=== PATIENT | female | born 1940 | race Caucasian/White ===

== ENCOUNTER 2018-11-15 09:31 | Inpatient (IN) | payer MEDICARE, OTHER ==
[~2018-11-15] VITALS: Ht 154.9 cm; Wt 70.9 kg
--- NOTE | 2018-11-15 10:05 | NUR ---
call placed to [facility]
--- NOTE | 2018-11-15 10:05 | NUR ---
Jolie pascual in [facility] - 11/15/18 at 1006 by HARLAN call placed to [facility]
[2018-11-15 10:40] LABS: MEAN CORPUSCULAR HEMOGLOBIN 25.8 PG (27.0-31.0); MEAN CORPUSCULAR HGB CONC 32.3 % (33.0-36.5); MEAN CORPUSCULAR VOLUME 79.9 FL (78-98); MEAN PLATELET VOLUME 7.1 FL (7.4-10.4); PLATELET COUNT 325 X10'3 (140-440); RED CELL DISTRIBUTION WIDTH 16.4 % (11.5-14.5); WHITE BLOOD COUNT 9.6 X10'3 (4.5-11.0)
[2018-11-15 10:58] LABS: ALANINE AMINOTRANSFERASE 31 U/L (12-78); ALBUMIN 2.9 G/DL (3.4-5.0); ALKALINE PHOSPHATASE 60 IU/L (46-116); ANION GAP 9 (8-16); ASPARTATE AMINO TRANSFERASE 23 U/L (10-37); BILIRUBIN,TOTAL 0.2 MG/DL (0.1-1.0); BLOOD UREA NITROGEN 46 MG/DL (7-18); BUN/CREATININE RATIO 59.7 (6.6-38.0); CHLORIDE 108 MMOL/L (99-107); CREATININE 0.77 MG/DL (0.40-0.90); GLUCOSE 117 MG/DL (70-104); PARTIAL THROMBOPLASTIN TIME 22 SECONDS (22-32); POTASSIUM 4.2 MMOL/L (3.5-5.1); PROTHROMBIN TIME 10.2 SECONDS (9.0-12.0); SODIUM 143 MMOL/L (135-145); TOTAL CARBON DIOXIDE 26.2 MMOL/L (24-32); TOTAL PROTEIN 5.8 G/DL (6.4-8.2); eGFR 73 ML/MIN
[2018-11-15 11:37] LABS: D-DIMER 0.58 MG/L FEU (0-0.50)
[2018-11-15 11:54] LABS: HEMATOCRIT 15.2 % (35.0-45.0); HEMOGLOBIN 4.9 g/dl (12.0-16.0)
[2018-11-15 12:08] LABS: ANISOCYTOSIS 1+; MICROCYTOSIS 2+; PLATELET ESTIMATE NORMAL; POLYCHROMASIA 1+; TOTAL CELLS COUNTED 100
[2018-11-15 12:09] LABS: HYPOCHROMASIA 1+
[2018-11-15] MEDS ORDERED: magnesium hydroxide 30ml (MOM) UD suspension PO PRN (13:15)
[2018-11-15] MEDS ORDERED: ondansetron/PF 4mg/2ml inj IV PRN (13:15)
[2018-11-15] MEDS ORDERED: potassium Cl 40MEQ/NS 500ml 500 ML IV PRN ×2 (13:15)
[2018-11-15] MEDS ORDERED: mag hydrox/Alum hydrox/simeth 30ml oral suspension PO PRN (13:15)
[2018-11-15] MEDS ORDERED: acetaminophen 325mg tablet PO PRN (13:15)
[2018-11-15] MEDS ORDERED: magnesium 4gm in 100ml NS 100 ML IV PRN (13:15)
[2018-11-15] MEDS ORDERED: magnesium Cl slow-release 64mg tablet PO PRN (13:15)
[2018-11-15] MEDS ORDERED: potassium Cl 20 mEq SR tablet PO PRN ×2 (13:15)
[2018-11-15] MEDS ORDERED: bisacodyl 10mg suppository rectal RC PRN (13:15)
[2018-11-15] MEDS ORDERED: magnesium 2GM in 50ml NS 50 ML IV PRN (13:15)
--- NOTE | 2018-11-15 13:16 | NUR ---
Dr. Will is in a procedure and will be calling back
[2018-11-15] MEDS ORDERED: UBID1CAP60 PO (14:31)
[2018-11-15] MEDS ORDERED: CHOL200052 PO (14:31)
[2018-11-15] MEDS ORDERED: DICL-194 PO (14:31)
[2018-11-15] MEDS ORDERED: HYDR25TA4 PO (14:31)
[2018-11-15] MEDS ORDERED: VITE1000C PO (14:31)
[2018-11-15] MEDS ORDERED: MAGN400C PO (14:31)
[2018-11-15] MEDS ORDERED: POTA99TA21 PO (14:31)
[2018-11-15] MEDS ORDERED: FISH12002 PO (14:31)
[2018-11-15 14:49] VITALS: BP 140/60
[2018-11-15 15:16] VITALS: BP 108/62
[2018-11-15 15:30] VITALS: BP 116/65
[2018-11-15 15:42] VITALS: BP 130/59
[2018-11-15 16:20] VITALS: BP 136/66
[2018-11-15] MEDS: pantoprazole 40MG/NS 100ML BAG 100 ML IV SCH ×2 (16:33→22:43)
[2018-11-15] MEDS: normal saline 1000ml 1,000 ML IV SCH (16:34)
[2018-11-15 18:28] LABS: BASOPHILS % (AUTO) 0.2 % (0-1); EOSINOPHILS # (AUTO) 0.3 X10'3 (0-0.9); EOSINOPHILS % (AUTO) 2.4 % (0-6); HEMATOCRIT 23.8 % (35.0-45.0); HEMOGLOBIN 7.8 g/dl (12.0-16.0); LYMPHOCYTES # (AUTO) 2.3 X10'3 (1.1-4.8); LYMPHOCYTES % (AUTO) 20.3 % (21-51); MEAN CORPUSCULAR HEMOGLOBIN 27.6 PG (27.0-31.0); MEAN CORPUSCULAR HGB CONC 32.9 % (33.0-36.5); MEAN PLATELET VOLUME 7.7 FL (7.4-10.4); MONOCYTES # (AUTO) 0.9 X10'3 (0-0.9); MONOCYTES % (AUTO) 8.2 % (2-12); NEUTROPHILS # (AUTO) 7.9 X10'3 (1.8-7.7); NEUTROPHILS % (AUTO) 68.9 % (42-75); PLATELET COUNT 298 X10'3 (140-440); RED BLOOD COUNT 2.84 X10'6 (4.20-5.60); RED CELL DISTRIBUTION WIDTH 15.3 % (11.5-14.5); WHITE BLOOD COUNT 11.4 X10'3 (4.5-11.0)
--- NOTE | 2018-11-15 18:34 | NUR ---
Problems reprioritized. Patient report given, questions answered & plan of care reviewed with Niko.
--- NOTE | 2018-11-15 18:35 | NUR ---
Patient in room [facility]. I have received report from YVONNE FELIX and had the opportunity to ask questions and assume patient care.
[2018-11-15 20:00] VITALS: BP 122/68
--- NOTE | 2018-11-15 20:00 | NUR ---
PT. REFUSED ORTHOSTATIC TAKEN.
[2018-11-16] VITALS (14 sets, daily range): BP systolic 123–176; BP diastolic 50–77
[2018-11-16 00:35] LABS: BASOPHILS % (AUTO) 0.4 % (0-1); EOSINOPHILS # (AUTO) 0.2 X10'3 (0-0.9); EOSINOPHILS % (AUTO) 2.5 % (0-6); LYMPHOCYTES # (AUTO) 1.7 X10'3 (1.1-4.8); LYMPHOCYTES % (AUTO) 17.8 % (21-51); MEAN CORPUSCULAR HEMOGLOBIN 27.7 PG (27.0-31.0); MEAN CORPUSCULAR HGB CONC 33.1 % (33.0-36.5); MEAN CORPUSCULAR VOLUME 83.6 FL (78-98); MONOCYTES # (AUTO) 0.6 X10'3 (0-0.9); MONOCYTES % (AUTO) 6.3 % (2-12); NEUTROPHILS # (AUTO) 7.1 X10'3 (1.8-7.7); PLATELET COUNT 255 X10'3 (140-440); RED BLOOD COUNT 2.46 X10'6 (4.20-5.60); RED CELL DISTRIBUTION WIDTH 15.9 % (11.5-14.5); WHITE BLOOD COUNT 9.7 X10'3 (4.5-11.0)
[2018-11-16 00:46] LABS: HEMATOCRIT 20.5 % (35.0-45.0); HEMOGLOBIN 6.8 g/dl (12.0-16.0)
[2018-11-16] MEDS: pantoprazole 40MG/NS 100ML BAG 100 ML IV SCH ×5 (02:51→20:50)
[2018-11-16] MEDS: normal saline 1000ml 1,000 ML IV SCH ×2 (03:31→13:40)
--- NOTE | 2018-11-16 06:23 | NUR ---
Problems reprioritized. Patient report given, questions answered & plan of care reviewed with GRAY FELIX.
--- NOTE | 2018-11-16 06:46 | NUR ---
Patient in room [facility]. I have received report from Niko FELIX and had the opportunity to ask questions and assume patient care.
[2018-11-16] MEDS ORDERED: fentaNYL/PF 50MCG/1 ML 2ML syringe ONE (07:36)
[2018-11-16] MEDS ORDERED: LIDOcaine Viscous 15ml cup ONE (07:36)
[2018-11-16] MEDS ORDERED: MIDAZolam 5mg/5ml vial ONE (07:36)
[2018-11-16 07:53] LABS: BASOPHILS % (AUTO) 0.1 % (0-1); EOSINOPHILS # (AUTO) 0.2 X10'3 (0-0.9); HEMATOCRIT 26.3 % (35.0-45.0); HEMOGLOBIN 8.8 g/dl (12.0-16.0); LYMPHOCYTES # (AUTO) 1.6 X10'3 (1.1-4.8); LYMPHOCYTES % (AUTO) 16.7 % (21-51); MEAN CORPUSCULAR HGB CONC 33.5 % (33.0-36.5); MEAN CORPUSCULAR VOLUME 86.6 FL (78-98); MEAN PLATELET VOLUME 7.8 FL (7.4-10.4); MONOCYTES # (AUTO) 0.6 X10'3 (0-0.9); MONOCYTES % (AUTO) 6.3 % (2-12); NEUTROPHILS # (AUTO) 7.2 X10'3 (1.8-7.7); NEUTROPHILS % (AUTO) 74.9 % (42-75); PLATELET COUNT 253 X10'3 (140-440); RED BLOOD COUNT 3.04 X10'6 (4.20-5.60); RED CELL DISTRIBUTION WIDTH 16.3 % (11.5-14.5); WHITE BLOOD COUNT 9.6 X10'3 (4.5-11.0)
[2018-11-16] MEDS: K and/or MAG REPLACEMENT MC SCH (08:00)
[2018-11-16 08:25] LABS: ALANINE AMINOTRANSFERASE 27 U/L (12-78); ALBUMIN 2.8 G/DL (3.4-5.0); ALKALINE PHOSPHATASE 51 IU/L (46-116); ANION GAP 10 (8-16); ASPARTATE AMINO TRANSFERASE 22 U/L (10-37); BILIRUBIN,TOTAL 0.7 MG/DL (0.1-1.0); BLOOD UREA NITROGEN 21 MG/DL (7-18); BUN/CREATININE RATIO 25.6 (6.6-38.0); CALCIUM 7.8 MG/DL (8.5-10.1); CHLORIDE 110 MMOL/L (99-107); CREATININE 0.82 MG/DL (0.40-0.90); GLUCOSE 91 MG/DL (70-104); POTASSIUM 3.9 MMOL/L (3.5-5.1); SODIUM 144 MMOL/L (135-145); TOTAL CARBON DIOXIDE 24.3 MMOL/L (24-32); TOTAL PROTEIN 5.6 G/DL (6.4-8.2); eGFR 68 ML/MIN
[2018-11-16] MEDS ORDERED: PEG 3350/Na sulf,bicarb,Cl/KCl oral sol 4 liter bottle PO ONE (08:40)
--- NOTE | 2018-11-16 14:10 | NUR ---
call to Dr. Han to inform that multiple nurses attempted to draw CBC and unable to get. No lab available to draw pt at this time. order for CBC to be drawn at 1800 when lab staff will be available.
[2018-11-16] MEDS: amLODIPine 2.5mg tablet PO SCH (15:33)
[2018-11-16] MEDS ORDERED: NO HOME MEDS (16:20)
--- NOTE | 2018-11-16 18:12 | NUR ---
Problems reprioritized. Patient report given, questions answered & plan of care reviewed with Niko FELIX.
--- NOTE | 2018-11-16 18:13 | NUR ---
Patient in room [facility]. I have received report from GRAY FELIX and had the opportunity to ask questions and assume patient care.
[2018-11-16 20:18] LABS: BASOPHILS % (AUTO) 0.3 % (0-1); EOSINOPHILS # (AUTO) 0.3 X10'3 (0-0.9); EOSINOPHILS % (AUTO) 3.2 % (0-6); HEMATOCRIT 27.7 % (35.0-45.0); HEMOGLOBIN 9.3 g/dl (12.0-16.0); LYMPHOCYTES # (AUTO) 1.7 X10'3 (1.1-4.8); LYMPHOCYTES % (AUTO) 15.5 % (21-51); MEAN CORPUSCULAR HEMOGLOBIN 28.9 PG (27.0-31.0); MEAN CORPUSCULAR HGB CONC 33.7 % (33.0-36.5); MEAN CORPUSCULAR VOLUME 85.9 FL (78-98); MEAN PLATELET VOLUME 7.9 FL (7.4-10.4); MONOCYTES # (AUTO) 0.7 X10'3 (0-0.9); MONOCYTES % (AUTO) 6.8 % (2-12); NEUTROPHILS % (AUTO) 74.2 % (42-75); PLATELET COUNT 269 X10'3 (140-440); RED BLOOD COUNT 3.23 X10'6 (4.20-5.60); RED CELL DISTRIBUTION WIDTH 16.1 % (11.5-14.5); WHITE BLOOD COUNT 10.8 X10'3 (4.5-11.0)
[2018-11-17] VITALS (7 sets, daily range): BP systolic 122–163; BP diastolic 54–72
[2018-11-17] MEDS: normal saline 1000ml 1,000 ML IV SCH (01:53)
[2018-11-17] MEDS: pantoprazole 40MG/NS 100ML BAG 100 ML IV SCH ×3 (01:53→10:35)
[2018-11-17 05:06] LABS: ALANINE AMINOTRANSFERASE 30 U/L (12-78); ALBUMIN 2.7 G/DL (3.4-5.0); ALBUMIN/GLOBULIN RATIO 0.9 (1.1-1.5); ALKALINE PHOSPHATASE 53 IU/L (46-116); ANION GAP 11 (8-16); ASPARTATE AMINO TRANSFERASE 25 U/L (10-37); BILIRUBIN,TOTAL 0.6 MG/DL (0.1-1.0); BLOOD UREA NITROGEN 13 MG/DL (7-18); BUN/CREATININE RATIO 17.8 (6.6-38.0); CALCIUM 7.7 MG/DL (8.5-10.1); CHLORIDE 110 MMOL/L (99-107); CREATININE 0.73 MG/DL (0.40-0.90); GLUCOSE 90 MG/DL (70-104); POTASSIUM 3.9 MMOL/L (3.5-5.1); SODIUM 146 MMOL/L (135-145); TOTAL CARBON DIOXIDE 24.9 MMOL/L (24-32); TOTAL PROTEIN 5.6 G/DL (6.4-8.2); eGFR 78 ML/MIN
[2018-11-17 05:10] LABS: BASOPHILS % (AUTO) 0.6 % (0-1); EOSINOPHILS # (AUTO) 0.2 X10'3 (0-0.9); HEMATOCRIT 25.5 % (35.0-45.0); HEMOGLOBIN 8.5 g/dl (12.0-16.0); LYMPHOCYTES # (AUTO) 1.1 X10'3 (1.1-4.8); LYMPHOCYTES % (AUTO) 15.4 % (21-51); MEAN CORPUSCULAR HEMOGLOBIN 28.8 PG (27.0-31.0); MEAN CORPUSCULAR HGB CONC 33.4 % (33.0-36.5); MEAN CORPUSCULAR VOLUME 86.2 FL (78-98); MEAN PLATELET VOLUME 7.9 FL (7.4-10.4); MONOCYTES # (AUTO) 0.6 X10'3 (0-0.9); PLATELET COUNT 236 X10'3 (140-440); RED BLOOD COUNT 2.96 X10'6 (4.20-5.60); RED CELL DISTRIBUTION WIDTH 16.8 % (11.5-14.5); WHITE BLOOD COUNT 6.9 X10'3 (4.5-11.0)
--- NOTE | 2018-11-17 06:19 | NUR ---
Problems reprioritized. Patient report given, questions answered & plan of care reviewed with GRAY FELIX.
--- NOTE | 2018-11-17 06:29 | NUR ---
Patient in room [facility]. I have received report from Niko FELIX and had the opportunity to ask questions and assume patient care.
[2018-11-17] MEDS ORDERED: fentaNYL/PF 50MCG/1 ML 2ML syringe ONE (07:21)
[2018-11-17] MEDS ORDERED: MIDAZolam 5mg/5ml vial ONE (07:22)
[2018-11-17] MEDS: K and/or MAG REPLACEMENT MC SCH (07:55)
[2018-11-17] MEDS: amLODIPine 2.5mg tablet PO SCH (10:34)
[2018-11-17] MEDS ORDERED: AMLO2.5T5 PO (11:37)
[2018-11-17] MEDS ORDERED: PANT-47 PO (11:37)
--- NOTE | 2018-11-17 11:55 | NUR ---
Patient noted to mold shifter that she was missing her cell phone. I did move patients belongings with her permission and her witnessing me placing her souza/green itz pack in the bottom nightstand drawer, and she had 2 patient belonging bags that appeared to have black slipper type shoes and some clothes on top of the nightstand then proceeded to move patients belongings with her bed to 346B from 346A. I did not note any cell phone at that time. I asked Housekeeping if they came across a phone and they don't have one either. I checked patient belonging records for this visit and no cell phone was noted. Will leave a note for our Director.
== END 2018-11-17 13:05 | disposition home or self-care (01) | DRG 379 ==
LOC: ER 09:32 → ED HOLD 13:13 → SUR 3N 18:06
PROVIDERS: ADMIT Internal Medicine; ATTEND Internal Medicine
PROC: 30233N1 Transfusion of Nonautologous Red Blood Cells into Peripheral Vein, Percutaneous Approach (ICD-10-PCS; 2018-11-15)
PROC: 0DB48ZX Excision of Esophagogastric Junction, Via Natural or Artificial Opening Endoscopic, Diagnostic (ICD-10-PCS; 2018-11-16)
PROC: 0DB68ZX Excision of Stomach, Via Natural or Artificial Opening Endoscopic, Diagnostic (ICD-10-PCS; 2018-11-16)
PROC: 0DJD8ZZ Inspection of Lower Intestinal Tract, Via Natural or Artificial Opening Endoscopic (ICD-10-PCS; principal; 2018-11-17)
DX: K29.01 Acute gastritis with bleeding (principal); K57.31 Diverticulosis of large intestine without perforation or abscess with bleeding; M19.90 Unspecified osteoarthritis, unspecified site; Z96.653 Presence of artificial knee joint, bilateral; R19.5 Other fecal abnormalities; Z66 Do not resuscitate; I10 Essential (primary) hypertension; D50.0 Iron deficiency anemia secondary to blood loss (chronic); K44.9 Diaphragmatic hernia without obstruction or gangrene; K22.8 Other specified diseases of esophagus; Z90.710 Acquired absence of both cervix and uterus; Z90.49 Acquired absence of other specified parts of digestive tract; Z88.5 Allergy status to narcotic agent
CPT/HCPCS: 36415; 36430; 43239; 45378; 71045; 80053; 83735; 83880; 84484; 85025; 85379; 85610; 85730; 86885; 86900; 86901; 86920; 87070; 88305; 88313; 88342; 93005; 99152; 99153; 99285; A4620; C9113; G0378; J2250; J3010; J7030; P9016